=== PATIENT | female | born 1955 | race Caucasian/White ===

== ENCOUNTER 2024-09-30 12:49 | Emergency (ER) | payer MEDICARE, SELFPAY ==
--- NOTE | ~2024-09-30 | US_ITS ---
EXAMINATION: US venous doppler LE RT DATE: 09/30/2024 13:29 INDICATION: Right lower limb pain and swelling. TECHNIQUE: Grayscale ultrasound images without and with compression and Doppler ultrasound images of the right lower extremity veins were obtained. COMPARISON: None. FINDINGS: The visualized portions of right common femoral vein, profunda (deep) femoral vein, femoral vein, pop liteal vein, peroneal trunk, posterior tibial veins, peroneal veins, gastrocnemius vein and greater s aphenous vein outflow are patent. IMPRESSION: 1. No deep venous thrombosis in the right lower limb. Reviewed, dictated and finalized at location A. ICAL PROCESS OPERATOR
[2024-09-30 12:54] VITALS: BP 138/79; PULSE 91; RESP 16; TEMP 36.3; O2SAT 94
--- NOTE | 2024-09-30 13:54 | ED_ITS ---
HPI - Extremity Problem General Chief complaint: Extremity Problem,Nontraumatic Stated complaint: R lower leg swelling Time Seen by Provider: 09/30/24 13:11 Source: patient Mode of arrival: ambulatory Limitations: no limitations History of Present Illness HPI Narrative: 9-year-old with a history of hypertension hypercholesteremia here with a complaint of right calf and ankle pain. Patient states that she has been going through physical therapy for past few days however noticed to have pain in the calf and ankle. She states that she went to urgent care and was later referred to the ER for further evaluation. She denies any chest pain or shortness of breath. No direct trauma. MD Complaint: extremity pain and extremity swelling Onset (ago): day(s) (3) Location: right Quality: aching Radiation: none Relieving factors: nothing Exacerbating factors: nothing Associated symptoms: denies other symptoms Related Data Allergies Allergy/AdvReac Type Severity Reaction Status Date / Time No Known Allergies Allergy Verified 09/30/24 12:59 Review of Systems Review of Systems: All systems reviewed & are unremarkable except as noted in HPI and below Constitutional: Constitutional: Reports no additional constitutional complai nts Eyes: Eyes: Reports no additional eye complaints ENT: Reports system reviewed and no additional complaints, except as documented Cardiovascular: Cardiovascular: Reports no additional cardiovascular complaints Respiratory: Respiratory: Reports no additional respiratory complaints Gastrointestinal: Gastrointestinal: Reports no additional gastrointestinal complaints Musculoskeletal: Musculoskeletal: Reports as per HPI Exam Narrative: GENERAL: Well-appearing, well-nourished, and in no acute distress. HEAD: Normocephalic, atraumatic. EYES: PERRLA and EOMI. NECK: Supple. CHEST: Clear to auscultation. No respiratory distress. HEART: Regular rate and rhythm. No murmur heard. Normal peripheral pulses. EXTREMITIES: Normal range of motion. No edema.mild tenderness in the calf , no redness SKIN: Warm, dry, no rash. NEURO: No focal deficits. Alert and oriented x3. PSYCH: Normal mood and affect. Course Course Emergency Course: Informed consent about to some findings. advised to keep the leg elevated Tylenol ibuprofen for pain. Continue physical therapy as tolerated Vital Signs Vital signs: Vital Signs Temperature 36.3 C L 09/30/24 12:54 Pulse Rate 91 09/30/24 12:54 Respiratory Rate 16 09/30/24 12:54 Blood Pressure 138/79 09/30/24 12:54 Pulse Oximetry 94 09/30/24 12:54 Oxygen Delivery Room Air 09/30/24 12:54 Temperature 36.3 C L 09/30/24 12:54 Pulse Rate 91 09/30/24 12:54 Respiratory Rate 16 09/30/24 12:54 Blood Pressure 138/79 09/30/24 12:54 Pulse Oximetry 94 09/30/24 12:54 Oxygen Delivery Room Air 09/30/24 12:54 MDM - Extremity (Nontraumatic) Imaging Data Radiologist's impression: ITS Impressions Venous Doppler Study 09/30/24 13:36 IMPRESSION: 1. No deep venous thrombosis in the right lower limb. Discharge Plan Discharge Clinical Impression: Lower extremity edema, Muscle strain of right lower leg Patient Disposition: Home, Self-Care Condition: Stable Instructions: Muscle Strain (DC) Additional Instructions: continue home meds , elevate the leg, Follow-up/Referrals: Lenora Mahajan MD [Primary Care Provider] - Time of Disposition: 14:06
== END 2024-09-30 14:30 | disposition home or self-care (01) ==
PROVIDERS: Emergency Provider Family Medicine; PCP Internal Medicine
DX: S86.911A Strain of unspecified muscle(s) and tendon(s) at lower leg level, right leg, initial encounter (principal); R60.0 Localized edema; I10 Essential (primary) hypertension; E78.00 Pure hypercholesterolemia, unspecified; X58.XXXA Exposure to other specified factors, initial encounter
CPT/HCPCS: 93971; 99284

== ENCOUNTER 2025-08-16 09:29 | Outpatient (CLI) | payer MEDICARE, SELFPAY ==
--- NOTE | ~2025-08-16 | DEXA_ITS ---
Bone Density Report Name: SEBASTIÁN HAGER Age: 70 Sex: Female Ethnicity: Keyshawn Date of : 1955 Indication: postmenopausal; screening for osteoporosis; Referring Provider: CHERRY DEL CASTILLO Study: Bone densitometry was performed. Exam Date: August 16, 2025 Accession number: [id number] Bone Density: Region BMD T-score Z-score Classification AP Spine(L2, L3, L4) 1.125 0.4 2.6 Normal Femoral Neck (Left) 0.713 -1.2 0.6 Osteopenia Total Hip (Left) 0.879 -0.5 1.0 Normal Femoral Neck (Right) 0.775 -0.7 1.1 Normal Total Hip (Right) 0.880 -0.5 1.0 Normal Total Hip Mean 0.880 -0.5 1.0 Normal World Health Organization criteria for BMD impression classify patients as: Normal (T-score at or above -1.0), Osteopenia (T-score between -1.0 and -2.5), or Osteoporosis (T-score at or below -2.5). 10-year Fracture Risk(1): Major Osteoporotic Fracture 10% Hip Fracture 1.6% Reported Risk Factors: [place] (), Neck BMD=0.713, BMI=22.6, alcohol use (1) FRAX(R) Version 3.08. Fracture probability calculated for an untreated patient. Fracture probability may be lower if the patient has received treatment. Clinical Information Provided by Patient: Has 3 or more alcoholic drinks per day Has used the following medications: HRT (i.e. estrogen/hormone therapy), Calcium Patient maximum height was 65 Menopause Age: 52 No regular weight bearing exercise Drinks caffeinated beverages Onset of menses at age 12 Number of children 1 Impression: The patient has low bone mass, based on the Left Femoral Neck T-score. The patient has an estimated ten-year risk of hip fracture of 1.6% and an estimated ten-year risk of major fracture of 10%, based on the WHO FRAX algorithm. The patient has risk factors, including: excessive alcohol use. Discussion: BONE DENSITY IS LOW AT ONE OR MORE SKELETAL SITES. This patient's lowest T-score is low at one or more skeletal sites. It meets the World Health Organization's (WHO) criteria for ?low bone mass? (T-score between -1.0 and -2.5). The patient's 10-year risk of fracture as calculated by FRAX is less than the threshold where pharmacological therapy is recommended by the National Osteoporosis Foundation (NOF). However, all treatment decisions require clinical judgment and consideration of individual patient factors, including patient preferences, comorbidities, previous drug use, risk factors not captured in the FRAX model (e.g., frailty, falls, vitamin D deficiency, increased bone turnover, interval significant decline in bone density) and possible under or overestimation of fracture risk by FRAX. The patient should follow a healthful lifestyle (good nutrition with adequate calcium and vitamin D, and appropriate weight-bearing exercise). Follow-Up: Consider repeating this study in 2 to 3 years to reassess this patient's status, or sooner if there is some new clinical indication. Reported by: JULIETA on 08/16/2025 9:57:00 AM. Reviewed, dictated and finalized at location A.
== END 2025-08-16 09:30 | disposition home or self-care (01) ==
LOC: MICIMG 09:31
PROVIDERS: PCP Internal Medicine; Visit Provider Internal Medicine
DX: Z78.0 Asymptomatic menopausal state (principal); M85.852 Other specified disorders of bone density and structure, left thigh
CPT/HCPCS: 77080